=== PATIENT | male | born 1950 | race Two or more races ===

== ENCOUNTER 2019-09-11 11:38 | Emergency (ER) | payer OTHER, MEDICAID ==
[~2019-09-11] VITALS: Ht 165.1 cm; Wt 64.0 kg
[2019-09-11] MEDS ORDERED: CARB-33 PO (11:44)
[2019-09-11 12:21] LABS: BASOPHILS % 0.4 % (0.0-2.0); EOSINOPHILS % 1.5 % (0.0-5.0); HEMATOCRIT. 43.2 % (42.0-52.0); HEMOGLOBIN. 14.9 g/dL (14.0-18.0); LYMPHOCYTES % 26.5 % (20.0-50.0); MEAN CORPUSCULAR VOLUME 93.1 fL (80.0-94.0); MONOCYTES % 8.6 % (2.0-8.0); PLATELET 157 x1000/uL (130-400); RED BLOOD CELL COUNT 4.64 mill/uL (4.7-6.1); RED CELL DISTRIBUTION WIDTH 13.4 % (11.6-14.6)
[2019-09-11 12:28] LABS: CHLORIDE 102 mEq/L (98-107); PROTHROMBIN TIME 10.5 sec (9.6-11.0)
[2019-09-11 13:33] LABS: CLARITY URINE CLOUDY (CLEAR); COLOR URINE YELLOW (YELLOW); KETONES URINE NEGATIVE (NEGATIVE); LEUKOCYTE ESTERASE URINE NEGATIVE (NEGATIVE); NITRITE URINE NEGATIVE (NEGATIVE); OCCULT BLOOD URINE NEGATIVE (NEGATIVE); PROTEIN URINE NEGATIVE (NEGATIVE); SPECIFIC GRAVITY URINE 1.012 (1.005-1.030); UROBILINOGEN URINE 0.2 E.U./dL (0.2-1.0)
[2019-09-11] MEDS ORDERED: NA PHOS,M-B/NA PHOS,DI-BA ENEMA 118ML PR ONE (14:15)
[2019-09-11] MEDS ORDERED: IOHEXOL-300 100 ML BOTTLE ONE (15:06)
[2019-09-11] MEDS ORDERED: SODIUM CHLORIDE 0.9% 1,000 ML IV ONE (17:15)
[2019-09-11 18:57] VITALS: BP 107/67
== END 2019-09-11 18:58 | disposition home or self-care (01) ==
LOC: ER 11:38
DX: K59.00 Constipation, unspecified (principal); R06.02 Shortness of breath; R10.9 Unspecified abdominal pain
CPT/HCPCS: 36415; 74177; 80053; 81003; 83690; 83880; 84484; 85025; 85610; 99284; J7030; Q9967